=== PATIENT | female | born 1970 | race Caucasian/White ===

== ENCOUNTER 2022-09-07 08:47 | Day surgery (SDC) | payer OTHER ==
[~2022-09-07] VITALS: Ht 170.2 cm; Wt 94.5 kg
[~2022-09-07 08:47] MED LIST: GABAPENTIN300 MG PO; IMIQUIMOD1 EACH TOP; LEXAPRO10 MG PO; MACROBID 100 M100 MG PO; MUPIROCIN22 GM TOP; OMEPRAZOLE20 MG PO; WELLBUTRIN XL300 MG PO
--- NOTE | 2022-09-10 17:12 | PATH ---
[facility] [address], [place] [address] Signed SPECIMEN(S): A CECUM COLON BIOPSY SPECIMEN(S): B TRANSVERSE COLON BIOPSY SPECIMEN(S): C DESCENDING/LEFT COLON BIOPSY SPECIMEN(S): D RECTUM SPECIMEN SOURCE: A. CECUM COLON BIOPSY B. TRANSVERSE COLON BIOPSY C. DESCENDING/LEFT COLON BIOPSY D. RECTUM CLINICAL HISTORY: Pre: Longstanding diarrhea; 2014 normal colon. Post: Normal colon. FINAL PATHOLOGIC DIAGNOSIS: A. Cecum, biopsy: - Colonic mucosa with no significant pathologic changes. B. Colon, transverse, biopsy: - Colonic mucosa with no significant pathologic changes. C. Colon, descending/left, biopsy: - Colonic mucosa with no significant pathologic changes. D. Rectum, biopsy: - Colonic mucosa with no significant pathologic changes. BRP:em:C2NR MICROSCOPIC EXAMINATION: Histologic sections of all submitted blocks are examined by light microscopy. These findings, together with the gross examination, support the pathologic diagnosis. GROSS DESCRIPTION: A. The specimen, labeled and designated "David, cecum colon biopsy," is received in formalin and consists of two prater soft tissue fragments, ranging from 0.2-0.4 cm. Entirely submitted in (A1). B. The specimen, labeled and designated "David, transverse colon biopsy," is received in formalin and consists of two prater soft tissue fragments, ranging from 0.2-0.3 cm. Entirely submitted in (B1). C. The specimen, labeled and designated "Grimaldo, Descending/left colon biopsy," is received in formalin and consists of three prater soft tissue fragments, ranging from 0.2-0.3 cm. Entirely submitted in (C1). PATIENT NAME: LA GRIMALDO PATHOLOGY DATE OF : 70 REPORT #: [id number] PHYSICIAN: AZRA COFFEY PCP: DEL MAGAÑA PA-C REPORT IS CONFIDENTIAL AND NOT TO BE RELEASED WITHOUT AUTHORIZATION [facility] [address], [place] [address] Signed D. The specimen, labeled and designated "David, rectal biopsy," is received in formalin and consists of two prater soft tissue fragments, ranging from 0.2-0.3 cm. Entirely submitted in (D1). VB (under the direct supervision of a pathologist) The Gross Description was prepared using a voice recognition system. The report was reviewed for accuracy; however, sound-alike word errors, addition and/or deletions may occur. If there is any question about this report, please contact Client Services. PERFORMING LABORATORY: The technical component was performed by [facility], [address] [place] [id number] (CLIA# [id number]). The professional interpretation was performed by [facility], [facility], [address] [place] [address] (CLIA#: [id number]). Diagnostician: Aubrey Grimaldo MD Pathologist Electronically Signed 09/10/2022 Copies: ~ PATIENT NAME: LA GRIMALDO PATHOLOGY DATE OF : 70 REPORT #: [id number] PHYSICIAN: AZRA COFFEY PCP: DEL MAGAÑA PA-C REPORT IS CONFIDENTIAL AND NOT TO BE RELEASED WITHOUT AUTHORIZATION
--- NOTE | 2022-09-11 17:43 | OR ---
[facility] [address], [place] [address] Signed DATE OF OPERATION: 09/07/2022 SURGEON: Laura Brand MD PREOPERATIVE DIAGNOSES: 1. Longstanding persistent diarrhea. 2. Negative colonoscopy in 2015 ([place], [place], Dr. Tillman). POSTOPERATIVE DIAGNOSIS: Normal-appearing colon; unable to intubate the ileocecal valve. PROCEDURE: Total colonoscopy to cecum with multiple biopsies. ANESTHESIA: Intravenous sedation fentanyl 100 mcg, Versed 5 mg. INDICATION: This 52-year-old white woman is a patient of MARY GRACE King and has long-standing diarrhea. She underwent colonoscopy in [place], [place] in [address] Tillman, which was said to be negative. She has a longstanding history of loose bowel movement, but no associated bleeding or constipation. She has no family history of colon cancer. She is admitted to undergo colonoscopy on the basis of those symptoms, understands the risks of bleeding, infection, perforation. FINDINGS: The prep was good. Complete colonoscopy was undertaken of the cecum. Despite multiple attempts, the ileocecal valve could not be intubated. Biopsies were taken of the cecum, transverse colon, left colon, and biopsy of rectum also performed. There was edema of the mucosa of the cecum and not elsewhere. Pathology is pending. PROCEDURE IN DETAIL: The patient was brought to the endoscopy suite and placed in lateral decubitus position given intravenous sedation to the point of slurred speech and nystagmus. Digital rectal examination was normal. An Olympus video colonoscope was passed in the rectum and manipulated throughout the colon ultimately intubating the cecum. The ileocecal valve and appendiceal orifice were identified. The ileocecal valve was slit-like and not easily intubated. Various maneuvers were made to intubate the ileum, but it was not forthcoming. On that basis, Electronically Signed By: LAURA BRAND MD 09/11/22 8907 PATIENT NAME: LA GRIMALDO OPERATIVE REPORT DATE OF : 70 REPORT #: [id number] PHYSICIAN: LAURA BRAND MD PCP: DEL MAGAÑA PA-C REPORT IS CONFIDENTIAL AND NOT TO BE RELEASED WITHOUT AUTHORIZATION [facility] [address] [place], [place] [address] Signed further efforts at intubating the ileum were abandoned and biopsies then taken of the cecum. Notably, the cecal mucosa did have edema as manifested by poorly defined submucosal blood vessels. There was no sign of ulceration however. The scope was then withdrawn and examination undertaken. Biopsies taken of the transverse, left colon and rectum. There was no evidence of obvious colitis, diverticular change, or other problem. Retroflexed view was normal as well. The scope was removed. The patient was taken to the recovery room in good condition. CONCLUDING DIAGNOSIS: Uncertain etiology for long-standing persistent diarrhea. PLAN: We will check celiac disease panel today by blood draw. We will recommend Citrucel one scoop p.o. daily and initiate loperamide 4 mg p.o. b.i.d. for diarrhea and have patient see back in the office in four weeks to assess her progress and review pathology reports. MD CRUZITO Yeboah/MODL /[id number] cc: MARY GRACE King Copies: ~ Electronically Signed By: LAURA BRAND MD 09/11/22 1743 PATIENT NAME: LA GRIMALDO JASKARAN OPERATIVE REPORT DATE OF : 70 REPORT #: [id number] PHYSICIAN: LAURA BRAND MD PCP: DEL MAGAÑA PA-C REPORT IS CONFIDENTIAL AND NOT TO BE RELEASED WITHOUT AUTHORIZATION
== END 2022-09-07 11:10 | disposition home or self-care (01) ==
LOC: OPS 08:47 → DS 08:52 → OPS 10:15 → DS 11:00 → OPS 11:10
PROVIDERS: ATTEND Surgery
PROC: 0DJD8ZZ Inspection of Lower Intestinal Tract, Via Natural or Artificial Opening Endoscopic (ICD-10-PCS; principal; 2022-09-07 10:15)
DX: R19.7 Diarrhea, unspecified (principal); K21.00 Gastro-esophageal reflux disease with esophagitis, without bleeding; Z86.59 Personal history of other mental and behavioral disorders; Z90.711 Acquired absence of uterus with remaining cervical stump
CPT/HCPCS: 99153; G0500; J2250; J3010; J7121